=== PATIENT | male | born 1965 | race Caucasian/White ===

== ENCOUNTER 2024-01-17 21:32 | Emergency (ER) | payer BC, SELFPAY ==
--- NOTE | ~2024-01-17 | XR_ITS ---
EXAMINATION: XR CHEST CLINICAL INFORMATION: Shortness of breath COMPARISON: None available. TECHNIQUE: 2 views of the chest were obtained. FINDINGS: The lungs are clear with no focal consolidation. No evidence of pneumothorax, pulmonary edema, or pleural effusions. The cardiomediastinal silhouette is unremarkable. There is dense calcification overlying the posterior left sixth rib and fifth/sixth rib interspace suggesting sequelae of healed old fracture. No acute osseous findings. XR/XR chest 2V IMPRESSION: No acute cardiopulmonary findings.
[2024-01-17 21:38] VITALS: BP 151/91; PULSE 72; RESP 20; TEMP 36.2; O2SAT 95; BMI 34.1
[2024-01-17 22:17] LABS: IDNOW Serial# 08D9AD1C
[2024-01-17 22:18] LABS: COVID-19 Test Negative (Negative); IDNOW Serial# 152EDE1D; Influenza A Negative (Negative); Influenza B2 Negative (Negative)
--- NOTE | 2024-01-17 23:36 | ED_ITS ---
HPI - SOB/Dyspnea General Chief Complaint: Dyspnea Stated Complaint: SOB Time Seen by Provider: 01/17/24 23:28 History of Present Illness HPI Narrative: Patient is a 58-year-old male presents today with having shortness of breath coughing congestion for the last week. Patient was noted to have oxygen saturation 93-95 range. Denies any leg swelling. Denies any history of blood clots. No history of cancer. Patient from [place]. Visiting. Patient denies any history of congestive heart failure. No history of OH. Patient is from home. Related Data Allergies Allergy/AdvReac Type Severity Reaction Status Date / Time No Known Allergies Allergy Verified 01/17/24 21:40 Review of Systems Review of Systems: Positive shortness of breath Yes all other systems are reviewed and are negative PMFSH Past Medical History Attestation statement: The following information was validated with the patient. Social History Social History Advance Directives: No Advance Directives Information Provided: No Do you have a plan to hurt others: No Plan Physical Exam Vital Signs: Vital Signs: Last Vital Signs Temp 97.1 F 01/17/24 21:38 Pulse 72 01/17/24 21:38 Resp 20 01/17/24 21:38 BP 151/91 H 01/17/24 21:38 Pulse Ox 95 01/17/24 21:38 O2 Del Method Room Air 01/17/24 21:38 BMI result Body Mass Index 34.1 Appearance: Alert. Oriented X3. No acute distress. Eyes: Pupils equal, round and reactive to light. ENT: Pharynx normal. Neck: Normal inspection. Neck supple. No lymph nodes noted. No crepitus CVS: Normal heart rate and rhythm. Pulses normal. Normal S1 and S2 Respiratory: No respiratory distress. Breath sounds normal. No Wheezing. No rales Abdomen: Soft and nontender. No rigidity. No distention. good BS x4 Skin: Skin warm and dry. Normal skin color. Normal skin turgor. Extremities: No lower extremity edema. Neurovascular intact to all extremities. No Lacerations. No Rash Neuro: Oriented X 3. No motor deficit. No sensory deficit. Moving all extermities. No slurred speech Medical Decision Making Medical Decision Making MDM Narrative: Patient's O2 sat is 93-95% on room air. No acute distress. Lungs are clear. Patient offered an EKG additional testing for why he feels short of breath. Including troponin BNP. Patient states that he has to leave because he has a catch arrive. Explained to patient we did not fully worked up his shortness of breath. Patient states understanding. Eloped from the emergency department. Patient told his COVID flu RSV test was negative. I reviewed his chest x-ray personally. There is no gross evidence of pneumonia or pneumothorax by my interpretation. Radiology's final reading is not out yet. Differential Diagnosis Differential Diagnoses: The differential diagnosis associated with the presentation includes ACS, PE, pneumonia, pneumothorax, seasonal allergies Admission/Observation Consideration of admission/observation: Escalation of care including admission/observation considered Lab Data MDM Lab Attestation statement: I reviewed the patient's lab results. Labs: Lab Results 01/17/24 Range/Units 21:47 COVID-19 (ROULA) Negative (Negative) COVID-19 Clin Com See Note Influenza Type A (ARMANI) Negative (Negative) Influenza Type B (ARMANI) Negative (Negative) Influenza A & B Note See Note Independent Interpretation I performed an independent interpretation of an: Plain X-Ray (Grossly negative for any acute evidence of pneumonia pneumothorax) Discharge Plan Discharge Clinical Impression: Shortness of breath Patient Disposition: Elopement Print Language: Bulgarian
--- NOTE | 2024-01-17 23:51 | PC.NURSE ---
Per MD, patient states that he has to leave because he has a catch arrive. MD explained to patient we did not fully worked up his shortness of breath-patient states understanding. Eloped from the emergency department.
--- OUTSIDE RECORDS SUMMARY | 2024-01-19 10:44 | XMS_ITS | Continuity of Care Document ---
Author Organization [facility] Address [address] [place] [address]- Care Team Providers Care Divisional Merchandising Manager Name Role Phone Physician, None Primary Care Physician Unavailab le Encounter NISHI Calderon [id number] Date(s): 03/02/22 - 03/03/22 [facility] [address] [place] [address]- Encounter Diagnosis Penile pain(Discharge Diagnosis) - 03/02/22 Discharge Disposition: Self Care or Family Attending Physician: Emergency Care Group, [facility] Admitting Physician: Emergency Care Group, Allergies, Adverse Reactions, Alerts No Known Allergies Assessment and Plan Extracted from: Title:General medical problem *ED Author:MD Keating Adam Date:03/02/22 Impression and Plan Diagnosis Penile pain Pelvic pain Priapism Calls-Consults - MD Cesar, Wang Maynard, urology, phone call, recommends aspiration of penile cavernosum. Plan Condition: Improved. Disposition: Discharge Order was placed(03/02/2022 22:49:00 EDT), Discharged: Time 03/02/2022 22:50:00, to home. Patient was given the following educational materials: Priapism. Follow up with: ; ; Wang Guerrero In 1 day 03/03/2022 Call for Appointment, Return to Emergency Department, In: as needed. Counseled: Patient, Regarding diagnosis, Regarding diagnostic results, Regarding treatment plan, Patient indicated understanding of instructions. Mental Status 03/02/22 Sensory Deficits None Results Laboratory List Name Date Act Part Thrombo Time 03/02/22 Automated Differential- 03/02/22 Basic Metabolic Panel 03/02/22 CBC/Plt/Diff 03/02/22 Glomerular Filtration Rate 03/02/22 Prothrombin Time with INR 03/02/22 Most recent to oldest [Reference Range]: 1 Hemolysis [Negative] 1+ *ABN* (03/02/22 8:09 PM) eGFR- [>=60] 69 (03/02/22 8:09 PM) eGFR- Non [>=60] 57 *LOW* (03/02/22 8:09 PM) Hemoglobin [13.5-17.5 g/dL] 18.3 g/dL *HI* (03/02/22 8:09 PM) Sodium Level [135-145 mmol/L] 138 mmol/L (03/02/22 8:09 PM) Potassium Level [3.5-5.4 mmol/L] 4.2 mmo l/L (03/02/22 8:09 PM) Chloride [98-110 mmol/L] 105 mmol/L (03/02/22 8:09 PM) Carbon Dioxide [22-32 mmol/L] 21 mmol/L *LOW* (03/02/22 8:09 PM) Glucose Level [70-99 mg/dL] 96 mg/dL (03/02/22 8:09 PM) Blood Urea Nitrogen [7-25 mg/dL] 31 mg/d L *HI* (03/02/22 8:09 PM) Creatinine [0.7-1.5 mg/dL] 1.3 mg/dL (03/02/22 8:09 PM) Anion Gap [7-15 mmol/L] 12 mmol/L (03/02/22 8:09 PM) Osmolality Calculated [280-300 mOsm/kg] 296 mOsm/kg (03/02/22 8:09 PM) Calcium Level [8.5-10.5 mg/dL] 9.8 mg/dL (03/02/22 8:09 PM) White Blood Cell Count [4.50-11.00 k/mcL ] 10.50 k/mcL (03/02/22 8:09 PM) Red Blood Cell Count [4.30-5.90 million/ mcL] 5.74 million/mcL (03/02/22 8:09 PM) Hematocrit [41.0-53.0 %] 54.4 % *HI* (03/02/22 8:09 PM) MCV [80.0-100.0 fL] 94.7 fL (03/02/22 8:09 PM) MCH [25.0-35.0 pg] 31.8 pg (03/02/22 8:09 PM) MCHC [30.0-37.0 g/dL] 33.6 g/dL (03/02/22 8:09 PM) RDW - Red Cell Distribution Width [11.5- 14.5 %] 13.9 % (03/02/22 8:09 PM) Platelet Count [150-450 k/mcL] 233 k/mcL (03/02/22 8:09 PM) MPV [8.8-12.0 fL] 8.0 fL *LOW* (03/02/22 8:09 PM) Neutrophils % [36-70 %] 69 % (03/02/22 8:09 PM) Lymphocytes % [25-45 %] 21 % *LOW* (03/02/22 8:09 PM) Monocytes % [0-10 %] 6 % (03/02/22 8:09 PM) Eosinophils % [0-7 %] 3 % (03/02/22 8:09 PM) Basophils % [0-2 %] 1 % (03/02/22 8:09 PM) Neutrophils - Absolute [1.80-8.00 k/mcL] 7.30 k/mcL (03/02/22 8:09 PM) Lymphocytes - Absolute [1.50-5.00 k/mcL] 2.20 k/mcL (03/02/22 8:09 PM) Monocytes - Absolute [0.00-0.80 k/mcL] 0 .60 k/mcL (03/02/22 8:09 PM) Eosinophils - Absolute [0.00-0.45 k/mcL] 0.30 k/mcL (03/02/22 8:09 PM) Basophils - Absolute [0.00-0.10 k/mcL] 0 .10 k/mcL (03/02/22 8:09 PM) Protime [9.4-12.5 sec] 10.1 sec (03/02/22 8:09 PM) INR [0.8-1.1] 0.9 (03/02/22 8:09 PM) PTT [25.1-36.5 sec] 39.3 sec *HI* (03/02/22 8:09 PM) Vital Signs Most recent to oldest [Reference Range]: 1 Blood Pressure [90-160/60-90 mm Hg] 134/ 74mm Hg (03/02/22 10:44 PM) Peripheral Pulse Rate [60-100 bpm] 64 bp m (03/02/22 10:44 PM) Respiratory Rate [12-24 br/min] 20 br/mi n (03/02/22 10:44 PM) SpO2 [92-100 %] 94 % (03/02/22 10:44 PM) Temperature Oral [36.1-38 degC] 36.8 deg C (03/02/22 6:18 PM) Social History Social History Type Response Sex Male Hospital Discharge Instructions Patient Education 03/02/2022 22:50:54 Priapism Priapism?? Priapism is an erection that lasts more than 4 hours without sexual stimulation. It can be very painful. Often, the cause of priapism is not known. In adults,??some causes include sickle cell diseaseand side effects from medicine or from illegal drugs. Some prescription medicines and shots (injections) have been linked to priapism. So have alcohol, marijuana, and cocaine. Children with leukemia can get priapism.??This is because blood flow in the penis gets blocked by the large number of white blood cells in the blood. Priapism is very serious. When erections last over 4 hours, there is less blood flow to the penis. This can cause cell damage from lack of oxygen.??The longer you have the erection before treatment, the worse the outcome. Those treated within 4 to 6 hours do best. But up to 50% of all men who get priapism will have some degree of erection problems in the future.?? Home care ???Rest and don't have any sexual stimulation as advised by your healthcare provider. ???Stay away from things that may trigger priapism. These may include certain medicines, marijuana,and alcohol. ???Ask your urologist about medicines that can be used at home at the earliest sign of a recurrence. ???The medicine hydroxyurea may help prevent priapism in people with sickle cell disease. Follow-up care Follow up with your urologist, or as advised. Call 911 Call 911 if you have: ???Shortness of breath ???Chest pain When to get medical advice Call your healthcare provider right away??if any of these occur: ???Having another prolonged erection that does not go away soon after sexual stimulation stops ???Bleeding from puncture sites in the penis where blood was drained ???More pain, redness, or swelling ???Area of skin that is turning black ???Trouble passing urine ?? [id number] [employer]. All rights reserved. This information is not intended as a substitute for professional medical care. Always follow your healthcare professional's instructions. Follow Up Care 03/02/2022 18:13:41 With:Wang Guerrero Address: [address] [place], [place] [id number] Business (1) When:03/03/2022 Comments:Call for Appointment Care Team Personnel Name: Physician, Justin
== END 2024-01-17 23:52 | disposition left against medical advice (07) ==
PROVIDERS: Emergency Provider Emergency Medicine Emergency Medical Services
DX: R06.02 Shortness of breath (principal); R05.9 Cough, unspecified; Z03.818 Encounter for observation for suspected exposure to other biological agents ruled out
CPT/HCPCS: 71046; 87502; 87635; 99281; 99283